=== PATIENT | female | born 2005 | race Two or more races ===

== ENCOUNTER 2024-03-30 19:54 | Emergency (ER) | payer OTHER, MEDICAID, SELFPAY ==
[2024-03-30 19:55] VITALS: BMI 31.3
[2024-03-30 20:15] VITALS: BP 134/83; PULSE 99; RESP 18; TEMP 36.6; O2SAT 99
--- NOTE | 2024-03-30 20:28 | PD.EDRME ---
Rapid Medical Screening Exam E Arrival date/time: 03/30/24 19:54 18F with no significant PMH presents to ED with 2 days of lower back, pelvic pain, and vaginal spotting. Patient's periods are always irregular so she doesn't know if she's . Chief Complaint: Abdominal Pain Time Seen by Provider: 03/30/24 20:19 Vital signs: Vital Signs Temperature 98 F 03/30/24 20:15 Pulse Rate 99 03/30/24 20:15 Respiratory Rate 18 03/30/24 20:15 Blood Pressure 134/83 H 03/30/24 20:15 Pulse Oximetry (%) 99 03/30/24 20:15 Oxygen Delivery Method Room Air 03/30/24 20:15
[2024-03-30 20:48] LABS: Collection Type, Urine Clean Catch
[2024-03-30 20:57] LABS: Bacteria,Urine 1+; Bilirubin,Urine Negative (Negative); Blood,Urine Negative (Negative); Clarity,Urine Turbid (Clear/Hazy); Color,Urine Yellow (Lt Yel-Yel); Glucose, Urine Negative (Negative); Ketones,Urine Negative (Negative); Leukocyte Esterase,Urine Positive (Negative); Nitrite,Urine Negative (Negative); PH,Urine 7.5 (5.0-7.0); Protein,Urine 1+ (Neg - Trace); RBC,Urine 6 /hpf (0-3); Specific Gravity,Urine 1.034 (1.001-1.035); Squamous Epithelial Cell,Urine 10 /hpf (0-5); WBC,Urine 10 /hpf (0-5)
[2024-03-30 20:58] LABS: HCG Qualitative,Urine Positive
[2024-03-30 21:17] LABS: Basophils # (Auto) 0.1 Thou/mm3 (0.0-0.2); Basophils % (Auto) 1 % (0-2.5); Eosinophils # (Auto) 0.1 Thou/mm3 (0.0-0.5); Eosinophils % (Auto) 1 % (0-10); Hematocrit 41.6 % (36.0-46.0); Hemoglobin 15.1 g/dL (12.0-16.0); Immature Granulocytes % (Auto) 0 % (0-0); Immature Granulocytes Auto 0.02 Thou/mm3 (0.00-0.00); Lymphocytes # (Auto) 1.7 Thou/mm3 (1.0-4.8); Lymphocytes % (Auto) 17 % (10-50); Mean Corpuscular HGB Conc 36.3 g/dl (31.0-37.0); Mean Corpuscular Hemoglobin 30.5 pg (25.0-35.0); Mean Corpuscular Volume 84 fL (80-100); Monocytes # (Auto) 0.8 Thou/mm3 (0.0-0.8); Monocytes % (Auto) 8 % (0-12); Neutrophils # (Auto) 7.3 Thou/mm3 (1.8-7.7); Neutrophils % (Auto) 73 % (37-80); Nucleated Red Blood Cell % 0 /100 WBC (0); Platelet Count 283 Thou/mm3 (140-440); RDW Standard Deviation 39.2 fL (36.4-46.3); Red Blood Count 4.95 Miln/mm3 (4.00-5.20)
[2024-03-30 21:39] LABS: Alanine Aminotransferase 58 U/L (10-49); Albumin, Serum 4.8 gm/dL (3.5-5.0); Albumin/Globulin Ratio 1.9 (1.2-2.2); Alkaline Phosphatase 63 U/L (46-116); Anion Gap 8 (7-16); Aspartate Amino Transferase 20 U/L (0-34); BUN/Creatinine Ratio 12 Ratio (12-20); Bilirubin,Total 0.6 mg/dL (0.3-1.2); Blood Urea Nitrogen 7 mg/dL (9-23); Calcium 9.6 mg/dL (8.3-10.6); Calcium (Corrected) 9.6 mg/dL (8.5-10.1); Carbon Dioxide 22.8 mMol/L (20.0-31.0); Chloride 105 mMol/L (98-107); Creatinine (Component) 0.6 mg/dL (0.6-1.3); Estimated Creatinine Clearance 172.9 mL/min (>60); Globulin 2.5 gm/dL (2.3-3.5); Glucose 99 mg/dL (74-106); Osmolality,Calculated 269 (275-295); Potassium 3.4 mMol/L (3.4-5.1); Sodium 136 mMol/L (136-145); Total Protein 7.3 gm/dL (5.7-8.2); eGFR > 60 See Note
--- NOTE | 2024-03-30 21:39 | XR_ITS ---
Examination: Complete OB ultrasound, less than 14 weeks, transabdominal Date and time of exam: March 30, 2024 2131 hrs. Indications: Pelvic pain since last night vaginal bleeding beginning 3 days ago Technique: Obstetrical ultrasound images less than 14 weeks performed via transabdominal imaging Findings: A normal shaped single intrauterine gestation is present in the uterus. presentation Ultrasonographic survey of visible and placental structures unremarkable. Amniotic fluid volume appears appropriate for this estimated gestational age. pole 0.29 cm corresponding to 5 week 6 day gestational age Cardiac motion 101 bpm Left ovary 6.1 x 3.7 cm left ovarian cyst 4.6 cm x 5.1 cm Right ovary 3.2 x 1.6 cm, bilateral ovarian arterial flow Impression: Viable intrauterine gestation 5 weeks 6 days.
[2024-03-30 22:11] LABS: Beta HCG,Quantitative 37465 mIU/mL (<5.0)
--- NOTE | 2024-03-30 23:16 | EDNOTE_ITS ---
ED Abdominal Pain RME/HPI General Chief Complaint: Abdominal Pain Stated complaint: ABDOMINAL PAIN Time seen by provider: 03/30/24 20:19 Arrival date/time: 03/30/24 19:54 RME / HPI RME / HPI narrative: 03/30/24 19:54 18F with no significant PMH presents to ED with 2 days of lower back, pelvic pain, and vaginal spotting. Patient's periods are always irregular so she doesn't know if she's . ------ Dr. Whiting?s Main ED Evaluation: 18yo female presents to the ED for a chief complaint of intermittent lower abdominal and back pain x yesterday. Patient states she began having abdominal and back pain yesterday, reporting it severely worsened today after she woke up from a nap. She states the pain progressively got worse, so she came in for evaluation. She denies any N/V, fever, chills, UTI symptoms or any other associated symptoms. No known allergies. Related Data Home Medications ?Medication ?Instructions ?Recorded ?Confirmed vit with calcium-iron 1 tab DAILY 08/26/22 08/26/22 fum-folic acid 27 mg-1 mg tablet Allergies Allergy/AdvReac Type Severity Reaction Status Date / Time No Known Allergies Allergy Verified 08/26/22 11:11 Review of Systems Review of Systems Systems Reviewed: All systems reviewed, normal except as documented Narrative Review of Systems: Gen: No fever, no chills, no weight loss EYES: No discharge, no visual changes, no pain HEENT: No ear pain, no congestion, no sore throat PULM: No shortness of breath, no cough, no congestion CV: No chest pain, no dyspnea on exertion, no palpitations GI: No nausea, no vomiting, no diarrhea, + pain, no constipation : No frequency, no urgency, no dysuria Musc/skel: No joint pain, no back pain Skin: No rash. Psyc: No hallucinations, no depression Heme/Lymph: No easy bleeding or bruising Past Medical History Past Medical History NEUROLOGIC: Negative Neurological Disorders or Seizures CARDIAC: Negative Cardiac Disorders or Congestive Heart Failure RESPIRATORY: Negative Chronic Obstructive Pulmonary Disease (COPD) GASTROINTESTINAL: Negative Gastrointestinal Disorders, Hepatitis or Colorectal Cancer GENITOURINARY: Negative Genitourinary Disorders, Renal Disease or Prostate Cancer REPRODUCTIVE: Negative Breast Cancer, Endometriosis, Genital Herpes, Gonorrhea, Pelvic Inflammatory Disease, Previous Pregnancies, Syphilis, Testicular Cancer or Uterine Prolapse MUSCULOSKELETAL: Negative Musculoskeletal Disorders or Bone Cancer ENDOCRINE: Negative Endocrine Disorders, Diabetes Mellitus Type 1 or Diabetes Mellitus Type 2 HEMATOLOGIC: Negative Blood Disorders or Anemia PSYCHO/SOCIAL: Negative Depression, Anxiety, Depression or Post Traumatic Stress Disorder OTHER HISTORY: Negative Hospitalization, Autoimmune Disease, Down Syndrome, Developmental Delay, Shingles, Falls, Blood Transfusions, Blood Transfusion Reaction, Anesthesia Reactions, Organ Transplant, Chemotherapy, Radiation Therapy, Hyperbaric Therapy, MRSA, VRSA, Vancomycin-Resistant Enterococci, Human Immunodeficiency Virus (HIV), Chicken Pox, Measles, Mumps, Rubella ([place] Measles), Pertussis, Clostridium Difficile, Cancer, Breast Cancer, Cervical Cancer, Colorectal Cancer, Lung Cancer, Ovarian Cancer, Prostate Cancer or Testicular Cancer Family History FAMILY HISTORY: Positive Family Cancer (mother had breast cancer); Negative Family Psychiatric Problems, Family Respiratory Disorders, Family Cardiac Disorders, Family Gastrointestinal Problems, Family Surgery or Family Anesthesia Reaction Surgical History SURGICAL: Negative Organ Transplant Social History SMOKING STATUS: Never smoker SECOND HAND EXPOSURE: No ED Exam Narrative Physical exam: GENERAL APPEARANCE: alert and oriented x 4, well-developed, well-nourished, no acute distress VITALS: All vitals were reviewed and the pulse ox is 99% on room air, which is normal according to my interpretation. HEENT: Normocephalic, atraumatic; pupils equal, round, reactive to light; EOMI; mucous membranes pink, moist; oropharynx clear NECK: Supple LUNGS: CTABL; no wheezes, no rales, no rhonchi HEART: Regular rate, regular rhythm; normal S1, S2; no murmurs ABDOMEN: non distended; normal BS; soft, no tenderness, no guarding, no rebound; no masses, no organomegaly, no hernia BACK: no CVA tenderness EXTREMITIES: atraumatic; no edema NEUROLOGIC: awake; alert and oriented x4; cranial nerves II-XII grossly intact; no focal sensory or motor deficits PSYCHIATRIC: appropriate mood and affect SKIN: warm, dry, normal color; no rashes Course Quality Measures none Orders Category Date Time Status US OB <= 14 weeks fetus Stat Exams 03/30/24 22:00 Completed ABO/RH Type Stat Lab 03/30/24 21:16 Completed Beta HCG,Quantitative Stat Lab 03/30/24 20:39 Completed CBC Stat Lab 03/30/24 20:39 Completed CMP [Comprehensive Metabolic Panel] Stat Lab 03/30/24 20:39 Completed HCG Qualitative,Urine Stat Lab 03/30/24 20:38 Completed UA [Urinalysis] Stat Lab 03/30/24 20:38 Completed Vital Signs Vital signs: Vital Signs Temperature 98 F 03/30/24 20:15 Pulse Rate 99 03/30/24 20:15 Respiratory Rate 18 03/30/24 20:15 Blood Pressure 134/83 H 03/30/24 20:15 Pulse Oximetry (%) 99 03/30/24 20:15 Oxygen Delivery Method Room Air 03/30/24 20:15 Abdominal Pain MDM Patient data External records reviewed:: [facility] previous records (Per chart review, patient was seen here on 06/10/22 for a vulvar abscess.) Clinical information provided by:: patient Social determinants that could affect healthcare access:: none Patient has the following chronic illnesses:: none How is presenting disease/condition affected by chronic disease/condition?: no chronic disease Evaluation data The following diagnostics were reviewed and interpreted by me:: lab results and radiology exam(s) Lab and/or radiology exams considered but not ordered:: none Interpretation Summary: CBC is normal, [place] [address], UA is contaminated, according to my interpretation. ---- [facility] Report Signed Patient: DELILAH RIVAS [facility]. Record#: [id number] Birthdate: 2005 Age/Sex: 18 / F Location: [facility] Attending Dr: Ordering Physician: Bartolo Srinivasan PA-C Date of Service: 03/30/24 Procedure(s): US OB <= 14 weeks fetus Accession Number(s): [id number] cc: Silverio Rivas MD; Kevin Peña MD; Bartolo Srinivasan PA-C~ Examination: Complete OB ultrasound, less than 14 weeks, transabdominal Date and time of exam: March 30, 2024 2131 hrs. Indications: Pelvic pain since last night vaginal bleeding beginning 3 days ago Technique: Obstetrical ultrasound images less than 14 weeks performed via transabdominal imaging Findings: A normal shaped single intrauterine gestation is present in the uterus. presentation Ultrasonographic survey of visible and placental structures unremarkable. Amniotic fluid volume appears appropriate for this estimated gestational age. pole 0.29 cm corresponding to 5 week 6 day gestational age Cardiac motion 101 bpm Left ovary 6.1 x 3.7 cm left ovarian cyst 4.6 cm x 5.1 cm Right ovary 3.2 x 1.6 cm, bilateral ovarian arterial flow Impression: Viable intrauterine gestation 5 weeks 6 days. Dictated By: Kevin Peña MD Signed By: <Electronically signed by Kevin Peña MD in OV> 03/30/24 2259 Medications / Prescriptions Medications or Prescriptions considered but not ordered:: none Medication administrations:: see above, if any Consultations Consultation(s) initiated? (list below): No Diagnosis Differential diagnosis abdominal pain: other (, threatened , mi ssed , abdominal pain, UTI) Most likely diagnosis given after review of the tests above:: see below Admission Indicated Admission indicated?: not indicated Admission Request Was there a request for admission?: No Disposition Plan Disposition Plan: Discharge Discharge Attestation Discharge Attestation: The patient and all family members were given an opportunity to ask questions and understood the discharge instructions. Discharge instructions specifically effects, indications for sooner follow up or return to the emergency department, and the expected course of current diagnosis. Patient condition: Stable Discharge Plan Plan Patient Disposition: HOME (Self Care) Disposition Comment: Stable for discharge Patient condition on transfer: Stable Prescriptions/Referrals Prescriptions/Med Rec: No Action Vitamin 27-1 mg Tablet 1 tab DAILY Referrals: Norman Mcdaniels MD [Physician] - In 1 week Silverio Rivas MD [Primary Care Provider] - In 1 week Problem List Clinical Impression: Intrauterine Patient/Caregiver Discharge Instructions Discharge Activity: activity as tolerated Education Materials: First Trimester Additional Instructions: Please return to the emergency department for any worsening or any further medical problems You should follow-up with your primary camera mechanic within the next several days. If you have any difficulties you can always see Dr. Mcdaniels in follow- up. Print Language: Senegalese Stand Alone Forms: Nicole Award Info., Patient Portal Info Letter
== END 2024-03-30 23:52 | disposition home or self-care (01) ==
PROVIDERS: Physician Assistant; Emergency Provider Emergency Medicine; PCP Family Medicine
DX: O99.891 Other specified diseases and conditions complicating pregnancy (principal); R10.2 Pelvic and perineal pain; Z3A.01 Less than 8 weeks gestation of pregnancy
CPT/HCPCS: 36415; 76801; 80053; 81001; 81025; 84702; 85025; 86900; 86901; 99284

== ENCOUNTER 2025-04-26 15:06 | Emergency (ER) | payer OTHER, SELFPAY ==
[2025-04-26 15:42] VITALS: BP 124/76; PULSE 105; RESP 18; TEMP 36.7; O2SAT 98
[2025-04-26] MEDS: MORPHINE SULF INJ 4 MG/ML VIAL IM (15:59)
[2025-04-26] MEDS: LIDOCAINE HCL 1% 20 ML VIAL IM (15:59)
[2025-04-26] MEDS: LIDOCAINE/PRILOCAINE CR 5GM 5 GM TUBE TOP (16:00)
[2025-04-26] MEDS: BUPIVACAINE MPF 0.5% 10 ML VIAL INFL (16:17)
--- NOTE | 2025-04-26 17:04 | PD.EDFMALE ---
ED Female Urogenital RME/HPI General Chief complaint: Urogenital-Female Stated complaint: CYST ON LEFT VAGINA Time Seen by Provider: 04/26/25 15:15 Arrival date/time: 04/26/25 15:06 This is a case of 19-year-old female who have history of multiple Bartholin cyst abscess incision and drainage 6x 90 mL in the emergency room due to vaginal pain swelling redness on the left side of vagina for 3 days patient denies any vaginal discharge urinary symptoms or pelvic pain no abdominal pain patient denies Limitations: no limitations Related Data Home Medications ?Medication ?Instructions ?Recorded ?Confirmed vit with calcium-iron 1 tab DAILY 08/26/22 08/26/22 fum-folic acid 27 mg-1 mg tablet Previous Rx's ?Medication ?Instructions ?Recorded cephalexin 500 mg capsule 1,000 mg (2 x 500 mg) PO Q12H 10 04/26/25 days #40 caps hydrocodone 5 mg-acetaminophen 325 1 tab PO Q6H PRN pain #16 tabs 04/26/25 mg tablet sulfamethoxazole 800 1 tab PO BID 10 days #20 tabs 04/26/25 mg-trimethoprim 160 mg tablet (Bactrim DS) Allergies Allergy/AdvReac Type Severity Reaction Status Date / Time No Known Allergies Allergy Verified 04/26/25 15:09 Review of Systems Review of Systems Systems Reviewed: All systems reviewed, normal except as documented Past Medical History Past Medical History NEUROLOGIC: Negative Neurological Disorders or Seizures CARDIAC: Negative Cardiac Disorders or Congestive Heart Failure RESPIRATORY: Negative Chronic Obstructive Pulmonary Disease (COPD) GASTROINTESTINAL: Negative Gastrointestinal Disorders, Hepatitis or Colorectal Cancer GENITOURINARY: Negative Genitourinary Disorders, Renal Disease or Prostate Cancer REPRODUCTIVE: Negative Breast Cancer, Endometriosis, Genital Herpes, Gonorrhea, Pelvic Inflammatory Disease, Previous Pregnancies, Syphilis, Testicular Cancer or Uterine Prolapse MUSCULOSKELETAL: Negative Musculoskeletal Disorders or Bone Cancer ENDOCRINE: Negative Endocrine Disorders, Diabetes Mellitus Type 1 or Diabetes Mellitus Type 2 HEMATOLOGIC: Negative Blood Disorders or Anemia PSYCHO/SOCIAL: Negative Depression, Anxiety, Depression or Post Traumatic Stress Disorder OTHER HISTORY: Negative Hospitalization, Autoimmune Disease, Down Syndrome, Developmental Delay, Shingles, Falls, Blood Transfusions, Blood Transfusion Reaction, Anesthesia Reactions, Organ Transplant, Chemotherapy, Radiation Therapy, Hyperbaric Therapy, MRSA, VRSA, Vancomycin-Resistant Enterococci, Human Immunodeficiency Virus (HIV), Chicken Pox, Measles, Mumps, Rubella ([place] Measles), Pertussis, Clostridium Difficile, Cancer, Breast Cancer, Cervical Cancer, Colorectal Cancer, Lung Cancer, Ovarian Cancer, Prostate Cancer or Testicular Cancer Family History FAMILY HISTORY: Positive Family Cancer (mother had breast cancer); Negative Family Psychiatric Problems, Family Respiratory Disorders, Family Cardiac Disorders, Family Gastrointestinal Problems, Family Surgery or Family Anesthesia Reaction Surgical History SURGICAL: Negative Organ Transplant Social History SMOKING STATUS: Never smoker SECOND HAND EXPOSURE: No ED Exam General Limitations: Present no limitations General appearance: Present alert and in no apparent distress Head Head exam: Present atraumatic Eye Eye exam: Present normal appearance, PERRL and EOMI ENT ENT exam: Present normal exam, normal oropharynx and mucous membranes moist Neck Neck exam: Present normal inspection, full ROM and trachea midline Chest Chest inspection: Present normal inspection and symmetric chest wall rise Respiratory Respiratory exam: Present normal lung sounds bilaterally Cardiovascular Cardiovascular exam: Present regular rate, normal rhythm and normal heart sounds Abdominal Exam Abdominal exam: Present soft, normal bowel sounds and other (Bladder is not distended not tender); Absent distention, tenderness, guarding, rebound, rigidity, diminished bowel sounds, hyperactive bowel sounds, hypoactive bowel sounds or organomegaly External exam: Present other (Noted 5 cm lump abscess on the left vagina along the Bartholin gland tender and swelling to touch no ulcer no vagina lesion with redness but no surrounding cellulitis no fluctuance non indurated) Extremities Exam Extremities exam: Present normal inspection and full ROM Back Exam Back exam: Present normal inspection and full ROM Neurological Exam Neurological exam: Present alert, oriented X3, CN II-XII intact, normal gait and reflexes normal; Absent motor sensory deficit Psychiatric Psychiatric exam: Present normal affect and normal mood Skin Skin exam: Present warm, dry, intact and normal color Course Quality Measures none Orders Category Date Time Status Bupivacaine Mpf 0.5% [Sensorcaine-Mpf Inj 0.5%] Med 04/26/25 16:05 Discontinued 10 ml INFL X1 ONE Bupivacaine Mpf/Epi 0.5% [Sensorcaine-Mpf Inj 0.5% w/ Med 04/26/25 15:37 Discontinued Epi] 30 ml EPID X1 ONE Clindamycin Vial [Cleocin vial] Med 04/26/25 16:51 Discontinued 600 mg IM X1 ONE Lidocaine 1% Vial 20 ml [Xylocaine 1% 20 ML] Med 04/26/25 15:37 Discontinued 20 ml IM X1 ONE Lidocaine/Prilocaine Cr 5Gm [Emla Cr] Med 04/26/25 15:37 Discontinued See Dose Instructions TOP X1 ONE Morphine* Inj Med 04/26/25 15:38 Discontinued 4 mg IM X1 ONE Vital Signs Vital signs: Vital Signs Temperature 98.0 F 04/26/25 15:42 Pulse Rate 105 H 04/26/25 15:42 Respiratory Rate 18 04/26/25 15:42 Blood Pressure 124/76 04/26/25 15:42 Pulse Oximetry (%) 98 04/26/25 15:42 Oxygen Delivery Method Room Air 04/26/25 15:42 Oxygen saturation is 98% and on room air PROCEDURES: Abscess I/D Site: bartholin's gland and other (Bartholin cyst) Side (if applicable): left Local Anesthetic: lidocaine 1% and bupivacaine 0.5% Amount of anesthesia used (mL): 6 Technique: incised with #11 blade Amount of fluid expressed (mL): 50 Irrigation: Yes Packing used?: none Complications: other Urogenital - Female MDM Narrative MDM Narrative:: This is a case of 19-year-old female who have history of multiple Bartholin cyst abscess incision and drainage 6x 90 mL in the emergency room due to vaginal pain swelling redness on the left side of vagina for 3 days patient denies any vaginal discharge urinary symptoms or pelvic pain no abdominal pain patient denies physical examination patient is awake alert oriented not in distress nontoxic looking well-hydrated well-nourished noted abdominal exam is benign nonsurgical no guarding no rebound no rigidity no CVA tenderness bladder is not distended not tender noted vaginal exam noted a 5 cm abscess or lump along in the Bartholin's gland suggestive of Bartholin cyst abscess tender to touch no fluctuance not indurated no surrounding cellulitis the rest of the physical examination and neurological exam is normal and unremarkable perform but still insists incision and drainage by using Emla lidocaine and bupicaine which have a good anesthetic effect incision and drainage was performed and noted 50 cc of abscess fluid irrigate the area of abscess with 50 cc of normal saline patient tolerated well procedure done via universal protocol and via sterile technique I discussed with Dr. Rogers and patient condition history and physical exam and agreed that the patient need to follow-up with him for further evaluation and treatment and possible marsupialization for recurrent Bartholin cyst abscess patient agreed with the treatment plan and discharge Patient was discharged with comfortable condition walking with stable gait. Patient verbalized no further complains explained diagnosis and answered patient question. Patient is comfortable with the proposed management plan including the need to follow up with his/her primary care physician and any specialist if applicable Discussed patient for any urgent condition or worsening sx, He/She needed to go to emergency room immediately or call 911. Patient acknowledge the responsibility to follow up as instructed and to monitor her/his symptoms. For any persistence of the symptoms for more than 3-5 days return precaution advised. Discussed the result of the test and was given printed discharge instruction Patient data External records reviewed:: [facility] previous records Clinical information provided by:: patient Social determinants that could affect healthcare access:: none Patient has the following chronic illnesses:: None How is presenting disease/condition affected by chronic disease/condition?: no chronic disease Evaluation data The following diagnostics were reviewed and interpreted by me:: other (specify) (None) Lab and/or radiology exams considered but not ordered:: None Interpretation Summary: None Medications / Prescriptions Medications or Prescriptions considered but not ordered:: Given Medication administrations:: Medication Administration History Discontinued Medications Bupivacaine HCl (Bupivacaine Mpf 0.5% 10 Ml Vial) 10 ml INFL X1 ONE Stop: 04/26/25 16:06 Last Admin: 04/26/25 16:17 Dose: 10 ml Documented By: OA Bupivacaine HCl/Epinephrine Bitart (Bupivacaine Mpf/Epi 0.5% 30 Ml Vial 1:200,000) 30 ml EPID X1 ONE Stop: 04/26/25 15:38 Last Admin: 04/26/25 16:28 Dose: Not Given Documented By: OA Non-Admin Reason: Discontinued Clindamycin Phosphate (Clindamycin Phos Inj 150 Mg/Ml Vial 6 Ml) 600 mg IM X1 ONE Stop: 04/26/25 16:52 Lidocaine HCl (Lidocaine Hcl 1% 20 Ml Vial) 20 ml IM X1 ONE Stop: 04/26/25 15:38 Last Admin: 04/26/25 15:59 Dose: 20 ml Documented By: OA Lidocaine/Prilocaine (Lidocaine/Prilocaine Cr 5gm 5 Gm Tube) 0 gm TOP X1 ONE Stop: 04/26/25 15:38 Last Admin: 04/26/25 16:00 Dose: 5 gm Documented By: OA Morphine Sulfate (Morphine Sulf Inj 4 Mg/Ml Vial) 4 mg IM X1 ONE Stop: 04/26/25 15:39 Last Admin: 04/26/25 15:59 Dose: 4 mg Documented By: OA Give Consultations Consultation(s) initiated? (list below): Yes Consultation #1 (Physician, Specialty, Details): Dr. Rogers OB on-call follow-up with his clinic in 1 week for reevaluation of Bartholin cyst gland for procedure Diagnosis Urogenital Female Differential Diagnosis: cyst of Bartholin's gland and other (Bartholin cyst abscess) Most likely diagnosis given after review of the tests above:: Bartholin cyst abscess Admission Indicated Admission indicated?: not indicated Explain why admission is indicated or not indicated:: Not indicated Admission Request Was there a request for admission?: No Admission Attestation Admission request attestation: Not indicated Disposition Plan Disposition Plan: Discharge Discharge Attestation Discharge Attestation: The patient and all family members were given an opportunity to ask questions and understood the discharge instructions. Discharge instructions specifically effects, indications for sooner follow up or return to the emergency department, and the expected course of current diagnosis. Patient condition: Stable Discharge Plan Plan Patient Disposition: HOME (Self Care) Patient condition on transfer: Stable Prescriptions/Referrals Prescriptions/Med Rec: New sulfamethoxazole-trimethoprim [Bactrim DS] 800-160 mg tablet 1 tab PO BID 10 Days Qty: 20 0RF hydrocodone-acetaminophen 5-325 mg tablet 1 tab PO Q6H MDD max 4 tabs per day PRN (Reason: pain) Qty: 16 0RF cephalexin 500 mg capsule 1,000 mg PO Q12H 10 Days Qty: 40 0RF No Action Vitamin 27-1 mg Tablet 1 tab DAILY Referrals: Silverio Rivas MD [Primary Care Provider, Family Practice] - In 1 week Michael Rogers MD [Physician, CERTIFIED PUBLIC ACCOUNTANT] - 05/02/25 Referral Note: For further evaluation and treatment of Bartholin cyst abscess for possible mursupialization Problem List Clinical Impression: Cyst of Bartholin gland duct, Abscess Patient/Caregiver Discharge Instructions Education Materials: Bartholin Cyst and Abscess, ED Abscess, Incision And Drainage, ED Bartholins Cyst IandD Additional Instructions: It is very important to see Dr. Watson for further evaluation and treatment of your recurrent Bartholin cyst abscess it is also important to return in the emergency room tomorrow for reevaluation and wound check for any worsening symptoms or any emergent concerns such as redness swelling discharge from the wound pain fever chills discoloration return to the emergency room immediately or call 911 give medication as directed finish the course of antibiotic keep the area clean and dry Print Language: Russian Stand Alone Forms: Nicole Award Info., Patient Portal Info Letter PA/LAUNDRY MARKER SUPERVISOR Supervising Physician PA/LAUNDRY MARKER SUPERVISOR Supervising Physician: Dr strong
== END 2025-04-26 17:10 | disposition home or self-care (01) ==
PROVIDERS: Emergency Provider Family Medicine; PCP Family Medicine
DX: N75.0 Cyst of Bartholin's gland (principal)
CPT/HCPCS: 56420; 81001; 81025; 96372; 99282; J2270; J3490

== ENCOUNTER 2025-04-27 11:46 | Emergency (ER) | payer OTHER, SELFPAY ==
[2025-04-27 12:21] VITALS: BP 114/78; PULSE 63; RESP 16; TEMP 37.1; O2SAT 99; BMI 25.4
--- NOTE | 2025-04-27 12:26 | EDNOTE_ITS ---
ED Skin Abcess FB-RME/HPI General Chief complaint: General Adult/Misc Complain Stated complaint: RETURNED FOR F/U W/ CARTER FOR CYST Time Seen by Provider: 04/27/25 11:56 Arrival date/time: 04/27/25 11:46 This is a case of 19-year-old female with no medical history came in in the emergency room for wound check abscess status post incision and drainage secondary to Bartholin cyst abscess yesterday patient history patient have recurrent Bartholin cyst abscess 6 times patient was discharged with cephalexin and Bactrim patient denies any pain redness swelling or discharge denies any fever or chills Limitations: no limitations Related Data Home Medications ?Medication ?Instructions ?Recorded ?Confirmed vit with calcium-iron 1 tab DAILY 08/26/22 fum-folic acid 27 mg-1 mg tablet Previous Rx's ?Medication ?Instructions ?Recorded cephalexin 500 mg capsule 1,000 mg (2 x 500 mg) PO Q12 H 10 04/26/25 days #40 caps hydrocodone 5 mg-acetaminophen 325 1 tab PO Q6H PRN pa in #16 tabs 04/26/25 mg tablet sulfamethoxazole 800 1 tab PO BID 10 days #20 tab s 04/26/25 mg-trimethoprim 160 mg tablet (Bactrim DS) Allergies Allergy/AdvReac Type Severity Reaction Status Date / Time No Known Allergies Allergy Verified 04/27/25 11:50 Review of Systems Review of Systems Systems Reviewed: All systems reviewed, normal except as documented Constitutional Constitutional: Reports system reviewed and no additional complaints, except as documented and Reports as per HPI Cardiovascular Cardiovascular: Reports system reviewed and no additional complaints, except as documented and Reports as per HPI Respiratory Respiratory: Reports system reviewed and no additional complaints, except as documented and Reports as per HPI Gastrointestinal Gastrointestinal: Reports system reviewed and no additional complaints, except as documented and Reports as per HPI Musculoskeletal Musculoskeletal: Reports system reviewed and no additional complaints, except as documented and Reports as per HPI Neurologic Neurologic: Reports system reviewed and no additional complaints, except as documented and Reports as per HPI Past Medical History Past Medical History NEUROLOGIC: Negative Neurological Disorders or Seizures CARDIAC: Negative Cardiac Disorders or Congestive Heart Failure RESPIRATORY: Negative Chronic Obstructive Pulmonary Disease (COPD) GASTROINTESTINAL: Negative Gastrointestinal Disorders, Hepatitis or Colorectal Cancer GENITOURINARY: Negative Genitourinary Disorders, Renal Disease or Prostate Cancer REPRODUCTIVE: Negative Breast Cancer, Endometriosis, Genital Herpes, Gonorrhea, Pelvic Inflammatory Disease, Previous Pregnancies, Syphilis, Testicular Cancer or Uterine Prolapse MUSCULOSKELETAL: Negative Musculoskeletal Disorders or Bone Cancer ENDOCRINE: Negative Endocrine Disorders, Diabetes Mellitus Type 1 or Diabetes Mellitus Type 2 HEMATOLOGIC: Negative Blood Disorders or Anemia PSYCHO/SOCIAL: Negative Depression, Anxiety, Depression or Post Traumatic Stress Disorder OTHER HISTORY: Negative Hospitalization, Autoimmune Disease, Down Syndrome, Developmental Delay, Shingles, Falls, Blood Transfusions, Blood Transfusion Reaction, Anesthesia Reactions, Organ Transplant, Chemotherapy, Radiation Therapy, Hyperbaric Therapy, MRSA, VRSA, Vancomycin-Resistant Enterococci, Human Immunodeficiency Virus (HIV), Chicken Pox, Measles, Mumps, Rubella (Thai Measles), Pertussis, Clostridium Difficile, Cancer, Breast Cancer, Cervical Cancer, Colorectal Cancer, Lung Cancer, Ovarian Cancer, Prostate Cancer or Testicular Cancer Family History FAMILY HISTORY: Positive Family Cancer (mother had breast cancer); Negative Family Psychiatric Problems, Family Respiratory Disorders, Family Cardiac Disorders, Family Gastrointestinal Problems, Family Surgery or Family Anesthesia Reaction Surgical History SURGICAL: Negative Organ Transplant Social History SMOKING STATUS: Never smoker SECOND HAND EXPOSURE: No ED Exam General Limitations: Present no limitations General appearance: Present alert and in no apparent distress Head Head exam: Present atraumatic Eye Eye exam: Present normal appearance, PERRL and EOMI ENT ENT exam: Present normal exam, normal oropharynx and mucous membranes moist Neck Neck exam: Present normal inspection, full ROM and trachea midline Chest Chest inspection: Present normal inspection and symmetric chest wall rise Respiratory Respiratory exam: Present normal lung sounds bilaterally Cardiovascular Cardiovascular exam: Present regular rate, normal rhythm and normal heart sounds Abdominal Exam Abdominal exam: Present soft and normal bowel sounds; Absent distention, diminished bowel sounds, hyperactive bowel sounds or organomegaly External exam: Present other (Noted no redness no swelling no discharge no bleeding nontender no cellulitis no abscess on the left labia majora no vaginal discharge no vaginal bleeding CMT negative) Extremities Exam Extremities exam: Present normal inspection and full ROM Back Exam Back exam: Present normal inspection and full ROM Neurological Exam Neurological exam: Present alert, oriented X3, CN II-XII intact, normal gait and reflexes normal; Absent motor sensory deficit Psychiatric Psychiatric exam: Present normal affect and normal mood Skin Skin exam: Present warm, dry, intact and normal color Course Quality Measures none Vital Signs Vital signs: Vital Signs Temperature 98.8 F 04/27/25 12:21 Pulse Rate 63 12/24/25 12:21 Respiratory Rate 16 04/27/25 12:21 Blood Pressure 114/78 04/27/25 12:21 Pulse Oximetry (%) 99 04/27/25 12:21 Oxygen Delivery Method Room Air 04/27/25 12:21 Oxygen saturation is 99% in room Skin / Abscess / Foreign Body MDM Narrative MDM Narrative:: This is a case of 19-year-old female with no medical history came in in the emergency room for wound check abscess status post incision and drainage secondary to Bartholin cyst abscess yesterday patient history patient have recurrent Bartholin cyst abscess 6 times patient was discharged with cephalexin and Bactrim patient denies any pain redness swelling or discharge denies any fever or chills physical examination patient is awake alert oriented not in distress nontoxic looking well-hydrated well-nourished abdominal exam is benign nonsurgical no guarding no rebound no rigidity no tenderness noted left majora improved markedly no redness no swelling no discharge no fluctuance not indurated no abscess no cellulitis pelvic exam is normal patient will continue cephalexin and Bactrim she was also advised to see Dr. Watson for recurrent Bartholin cyst abscess as scheduled tomorrow for any worsening symptoms or any emergent concern return precaution in the ER is advised Patient was discharged with comfortable condition walking with stable gait. Patient verbalized no further complains explained diagnosis and answered patient question. Patient is comfortable with the proposed management plan including the need to follow up with his/her primary care physician and any specialist if applicable Discussed patient for any urgent condition or worsening sx, He/She needed to go to emergency room immediately or call 911. Patient acknowledge the responsibility to follow up as instructed and to monitor her/his symptoms. For any persistence of the symptoms for more than 3-5 days return precaution advised. Discussed the result of the test and was given printed discharge instruction Patient data External records reviewed:: [facility] previous records Clinical information provided by:: patient Social determinants that could affect healthcare access:: none Patient has the following chronic illnesses:: None How is presenting disease/condition affected by chronic disease/condition?: no chronic disease Evaluation data The following diagnostics were reviewed and interpreted by me:: other (specify) (None) Lab and/or radiology exams considered but not ordered:: None Interpretation Summary: None Medications / Prescriptions Medications or Prescriptions considered but not ordered:: Given Medication administrations:: Given Consultations Consultation(s) initiated? (list below): No Diagnosis Skin/Abscess Differential Diagnosis: other (Bartholin cyst abscess) Most likely diagnosis given after review of the tests above:: Bartholin cyst abscess Admission Indicated Admission indicated?: not indicated Explain why admission is indicated or not indicated:: Not indicated Admission Request Was there a request for admission?: No Admission Attestation Admission request attestation: Not indicated Disposition Plan Disposition Plan: Discharge Discharge Attestation Discharge Attestation: The patient and all family members were given an opportunity to ask questions and understood the discharge instructions. Discharge instructions specifically effects, indications for sooner follow up or return to the emergency department, and the expected course of current diagnosis. Patient condition: Stable Discharge Plan Plan Patient Disposition: HOME (Self Care) Patient condition on transfer: Stable Prescriptions/Referrals Prescriptions/Med Rec: No Action sulfamethoxazole-trimethoprim [Bactrim DS] 800-160 mg tablet 1 tab PO BID 10 Days Qty: 20 0RF hydrocodone-acetaminophen 5-325 mg tablet 1 tab PO Q6H MDD max 4 tabs per day PRN (Reason: pain) Qty: 16 0RF cephalexin 500 mg capsule 1,000 mg PO Q12H 10 Days Qty: 40 0RF Vitamin 27-1 mg Tablet 1 tab DAILY Problem List Clinical Impression: Wound check, abscess, Cyst of Bartholin gland duct, Abscess Patient/Caregiver Discharge Instructions Education Materials: Abscess Drainage, ED Bartholins Cyst IandD Additional Instructions: Follow-up with your primary care physician in 2 days for reevaluation it is very important to see Dr. Watson as scheduled call the clinic tomorrow for an appointment for further evaluation and treatment of recurrent Bartholin cyst abscess and for possible procedure recurrence worsening of symptoms or any em ergent concern call 911 or go to the nearest emergency room finish the course of antibiotic keep the area clean and dry Print Language: Greenlandic Stand Alone Forms: Nicole Award Info., Patient Portal Info Letter PA/AEROSPACE TECHNICIAN Supervising Physician PA/AEROSPACE TECHNICIAN Supervising Physician: Dr. Garces
== END 2025-04-27 12:34 | disposition home or self-care (01) ==
LOC: SERX 12:36
PROVIDERS: Emergency Provider Family Medicine; PCP Family Medicine
DX: Z48.817 Encounter for surgical aftercare following surgery on the skin and subcutaneous tissue (principal); N75.0 Cyst of Bartholin's gland; N75.1 Abscess of Bartholin's gland
CPT/HCPCS: 99281